=== PATIENT | male | born 1980 | race Caucasian/White ===

== ENCOUNTER 2016-09-19 01:36 | Emergency (ER) | payer OTHER ==
[~2016-09-19] VITALS: Ht 180.3 cm; Wt 99.8 kg
[2016-09-19 02:07] VITALS: BP 130/80
[2016-09-19] MEDS ORDERED: PROM118S2 PO (02:22)
[2016-09-19] MEDS ORDERED: PRED-220 PO (02:22)
[2016-09-19] MEDS ORDERED: HYDR25TA PO (02:22)
--- NOTE | 2016-09-19 02:22 | PHYS DOC ---
Past Medical History Past Medical History: No Pertinent History Past Surgical History: No Surgical History Alcohol Use: None Drug Use: None Adult General Chief Complaint Chief Complaint: Congestion HPI HPI Patient is a 35 year old male who presents with complaint of nasal congestion. Patient states that he has had persistent symptoms over the past month but states that he has had worsening symptoms over the past 2-3 days. Patient has been seen by his primary doctor and was treated with prednisone and azithromycin. Patient states that he finished the azithromycin and is finishing the last day of his prednisone. Patient states despite treatment he is not feeling any better. Patient states he has had thick rhinorrhea is having pressure throughout his face. Patient states that the symptoms improved during the day but are much worse at nighttime. Patient states that he is also having cough at nighttime which is making it difficult for him to sleep. Patient denies any fevers. Patient also states that he is having fullness in his right ear and is having pain. Patient rates his pain as 4 out of 10. Patient states that he has also been taking Flonase and has been using sinus rinse with no relief in symptoms. Review of Systems Review of Systems Constitutional: Denies fever or chills [] Eyes: Denies change in visual acuity, redness, or eye pain [] HENT: Nasal congestion, right ear pain [] Respiratory: Cough [] Cardiovascular: Denies chest pain or edema [] GI: Denies abdominal pain, nausea, vomiting, bloody stools or diarrhea [] : Denies dysuria or hematuria [] Musculoskeletal: Denies back pain or joint pain [] Integument: Denies rash or skin lesions [] Neurologic: Denies headache, focal weakness or sensory changes [] Current Medications Current Medications Current Medications Medications (Trade) Dose Ordered Sig/Glen Start Time Stop Time Status Last Admin Dose Admin Hydroxyzine Pamoate (Vistaril) 25 mg 1X ONCE 09/19/16 02:30 09/19/16 02:31 DC 09/19/16 02:10 25 MG Oxymetazoline HCl (Afrin) 2 spray 1X ONCE 09/19/16 02:30 09/19/16 02:31 DC 09/19/16 02:10 2 SPRAY Allergies Allergies Allergies Coded Allergies Type Severity Reaction Last Updated Verified No Known Drug Allergies 04/08/16 No Physical Exam Physical Exam Constitutional: Alert, afebrile, appears in mild discomfort. [] HENT: Normocephalic, atraumatic, bilateral external ears normal, right TM with clear middle ear effusion, nonerythematous, left TM normal, oropharynx moist, no oral exudates, nasal mucosal edema with thick rhinorrhea present. [] Eyes: PERRLA, EOMI, conjunctiva normal, no discharge. [] Neck: Normal range of motion, no tenderness, supple, no stridor. [] Cardiovascular:Heart rate regular rhythm, no murmur [] Lungs & Thorax: Bilateral breath sounds clear to auscultation [] Abdomen: Bowel sounds normal, soft, no tenderness, no masses, no pulsatile masses. [] Skin: Warm, dry, no erythema, no rash. [] Back: No tenderness, no CVA tenderness. [] Extremities: No tenderness, no cyanosis, no clubbing, ROM intact, no edema. [] Neurologic: Alert and oriented X 3, normal motor function, normal sensory function, no focal deficits noted. [] Current Patient Data Vital Signs Vital Signs Date Time Temp Pulse Resp B/P (MAP) Pulse Ox O2 Delivery O2 Flow Rate FiO2 09/19/16 02:07 98.7 103 18 96 Room Air 98.7 EKG EKG Not performed [] Radiology/Procedures Radiology/Procedures Not performed [] Course & Med Decision Making Course & Med Decision Making Pertinent Labs and Imaging studies reviewed. (See chart for details) Patient was treated with hydroxyzine and Afrin in the emergency department. The patient was provided with prescriptions to help with symptoms. Patient's symptoms appear consistent with allergic rhinitis. Advised follow-up in 2-3 days with patient's primary doctor and return to emergency department for any worsening symptoms. Patient voiced understanding and in agreement with treatment plan. Dragon Disclaimer Dragon Disclaimer This electronic medical record was generated, in whole or in part, using a voice recognition dictation system. Departure Departure Impression: Primary Impression: Allergic rhinitis Additional Impression: Cough Disposition: 01 HOME, SELF-CARE Condition: STABLE Referrals: VANESSA LANDERS MD (PCP) Patient Instructions: Allergic Rhinitis, Cough, Adult Additional Instructions: Follow-up with your primary doctor in 2-3 days. Return to the emergency department for any worsening symptoms. Scripts Prednisone (PREDNISONE) 10 Mg Tablet 10 MG PO UD for PREDNISONE TAPER, #39 TAB 0 Refills Take 3 tablets by mouth twice a day for 3 days, then take 2 tablets by mouth twice a day for 3 days, then take 1 tablet by mouth twice a day for 3 days, then take 1 tablet by mouth daily x 3 days, then stop. Prov: BRENT TREVIÑO MD 09/19/16 Hydroxyzine Hcl (HYDROXYZINE HCL) 25 Mg Tablet 25 MG PO QID Y for ALLERGIES, #30 TAB Prov: BRENT TREVIÑO MD 09/19/16 Promethazine Hcl/Codeine (PROMETHAZINE-CODEINE SYRUP) 118 Ml Syrup 5 ML PO Q4-6HRS Y for COUGH, #120 ML Prov: BRENT TREVIÑO MD 09/19/16 Problem Qualifiers Primary Impression: Allergic rhinitis Allergic rhinitis trigger: unspecified Allergic rhinitis seasonality: seasonal Qualified Codes: J30.2 - Other seasonal allergic rhinitis BRENT TREVIÑO MD September 19, 2016 02:22
[2016-09-19] MEDS ORDERED: hydrOXYzine PAMOATE 25 MG CAPSULE PO ONE (02:30)
[2016-09-19] MEDS ORDERED: OXYMETAZOLINE 0.05% NASAL SPRAY 30ML BOTTLE. NS ONE (02:30)
== END 2016-09-19 02:31 | disposition home or self-care (01) ==
LOC: ER 01:36
DX: J30.2 Other seasonal allergic rhinitis (principal); H92.01 Otalgia, right ear
CPT/HCPCS: 99283; Q0177